=== PATIENT | female | born 1950 | race American Indian/Alaskan Native ===

== ENCOUNTER 2018-05-13 12:09 | Inpatient (IN) | payer MEDICARE ==
--- NOTE | 2018-05-13 17:27 | History and Physical Report ---
History of Present Illness Date of examination: 05/13/18 Date of admission: 05/13/18 13:53 Chief complaint: Uncontrolled BP-sent from Dr Orozco's office as direct admit History of present illness: 67 y/o AAF with pmh of HTN ,RA and diet controlled Diabetes sent from Nephrolgy -Dr Orozco's office for control of BP.Apparently BP in high 190's systolic and Diastolic in 100 to 120 mm HG .No symptoms.Patient apparently compliant.Patient on clonidine once a day.Compliant with her medications.RA in remission.No H/A . Past History Past Medical History: arthritis (RA), diabetes, hypertension Past Surgical History: No surgical history Social history: lives with family, full code Family history: hypertension Medications and Allergies Allergies Allergy/AdvReac Type Severity Reaction Status Date / Time No Known Allergies Allergy Unverified 05/13/18 12:45 Home Medications Medication Instructions Recorded Confirmed Last Taken Type Clonidine HCl 0.1 mg PO HS 05/13/18 05/13/18 Unknown History Hydroxychloroquine 200 mg PO QDAY 05/13/18 05/13/18 Unknown History Losartan Potassium 100 mg PO QDAY 05/13/18 05/13/18 Unknown History Nifedipine ER 90 mg PO QDAY 05/13/18 05/13/18 Unknown History Spironolactone 50 mg PO QDAY 05/13/18 05/13/18 Unknown History Terazosin HCl 1 mg PO QDAY 05/13/18 05/13/18 Unknown History sulfaSALAzine 500 mg PO BID 05/13/18 05/13/18 Unknown History Review of Systems All systems: negative Exam - Constitutional Vitals: Temp Pulse Resp BP Pulse Ox 97.8 F 45 L 18 200/88 99 05/13/18 14:56 05/13/18 14:56 05/13/18 16:50 05/13/18 16:50 05/13/18 14:56 General appearance: Present: no acute distress, well-nourished - EENT Eyes: Present: PERRL ENT: hearing intact, clear oral mucosa - Neck Neck: Present: supple, normal ROM - Respiratory Respiratory effort: normal Respiratory: bilateral: CTA - Cardiovascular Heart rate: 78 Rhythm: regular Heart Sounds: Present: S1 & S2. Absent: rub, click - Extremities Extremities: no ischemia, pulses intact, pulses symmetrical, No edema Peripheral Pulses: within normal limits - Abdominal General gastrointestinal: Present: soft, non-tender, non-distended, normal bowel sounds Female genitourinary: Present: normal - Rectal Rectal Exam: deferred - Integumentary Integumentary: Present: clear, warm, dry - Musculoskeletal Musculoskeletal: gait normal, strength equal bilaterally - Psychiatric Psychiatric: appropriate mood/affect, intact judgment & insight - Neurologic Neurologic: CNII-XII intact, moves all extremities - Allied Health Allied health notes reviewed: nursing, case management Results - Labs CBC & Chem 7: 05/13/18 17:37 05/13/18 17:37 Labs: Laboratory Last Values POC Glucose 114 (70-105) H 05/13/18 16:23 Assessment and Plan Advance Directives: Yes (Full code) VTE prophylaxis?: Chemical Plan of care discussed with patient/family: Yes - Patient Problems (1) Hypertensive emergency Current Visit: Yes Status: Acute Plan to address problem: Clonidine increased to q8hrs from once a day.Inadequate clonidine dosing maybe causing rebound HTNLosartan added.Hydralazine 10 mg IV q3 hrs. 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
[2018-05-13] MEDS ORDERED: TYLENOL PO PRN (17:30)
[2018-05-13] MEDS ORDERED: ZOFRAN IV PRN (17:30)
[2018-05-13] MEDS ORDERED: CLONIDINE HCL 0.1 MG PO SCH (17:30)
[2018-05-13] MEDS ORDERED: NON-FORMULARY (Nifedipine Er 90 MG) PO SCH (17:30)
[2018-05-13] MEDS ORDERED: REGLAN IV PRN (17:30)
[2018-05-13] MEDS ORDERED: PERCOCET 5/325 PO PRN (17:30)
[2018-05-13] MEDS ORDERED: SODIUM CHLORIDE FLUSH SYRINGE 10 ML IV PRN (17:30)
[2018-05-13] MEDS ORDERED: NON-FORMULARY (Hydroxychloroquine 200 MG) PO SCH (17:30)
[2018-05-13] MEDS ORDERED: DILAUDID IV PRN (17:30)
[2018-05-13] MEDS ORDERED: NON-FORMULARY (Losartan Potassium 100 MG) PO SCH (17:30)
[2018-05-13] MEDS: APRESOLINE IV PRN ×2 (17:50→22:04)
[2018-05-13] MEDS ORDERED: COZAAR PO SCH ×2 (18:00→22:24)
[2018-05-13] MEDS ORDERED: NACL 0.45% 1000 ML 1,000 ML IV SCH (18:00)
[2018-05-13] MEDS ORDERED: PROCARDIA XL PO SCH (18:00)
[2018-05-13 18:45] LABS: Basophils % (Auto) 1.3 % (0.0-1.8); Eosinophils # (Auto) 0.1 K/mm3 (0.0-0.4); Eosinophils % (Auto) 1.7 % (0.0-4.3); Hematocrit 38.8 % (30.3-42.9); Hemoglobin 12.8 gm/dl (10.1-14.3); Lymphocytes # (Auto) 1.3 K/mm3 (1.2-5.4); Lymphocytes % (Auto) 44.9 % (13.4-35.0); Mean Corpuscular HGB Conc 33 % (30-34); Mean Corpuscular Volume 92 fl (79-97); Monocytes # (Auto) 0.4 K/mm3 (0.0-0.8); Monocytes % (Auto) 12.6 % (0.0-7.3); Platelet Count 256 K/mm3 (140-440); Red Blood Count 4.24 M/mm3 (3.65-5.03); Red Cell Distribution Width 13.4 % (13.2-15.2)
[2018-05-13 18:53] LABS: Alanine Aminotransferase 28 units/L (7-56); Albumin 3.8 g/dL (3.9-5); BUN/Creatinine Ratio 19; Blood Urea Nitrogen 21 mg/dL (7-17); Calcium 9.7 mg/dL (8.4-10.2); Hemolysis Index 39
[2018-05-13] MEDS: CATAPRES PO SCH ×2 (19:05→22:02)
[2018-05-13] MEDS: PLAQUENIL PO SCH (19:06)
[2018-05-13] MEDS: PEPCID PO SCH (22:04)
[2018-05-13] MEDS: SODIUM CHLORIDE FLUSH SYRINGE 10 ML IV SCH (22:05)
[2018-05-13] MEDS ORDERED: LASIX IV ONE (22:21)
--- NOTE | 2018-05-13 22:25 | Event Note ---
Admitted for uncontrolled HTN failed out pt treatment with five meds Sent from office , d/w Dr ruggiero Adjust meds will follow very poor dietary compliance
[2018-05-14] MEDS: ALDACTONE PO SCH ×2 (03:22→11:28)
[2018-05-14] MEDS ORDERED: LASIX IV ONE (04:00)
[2018-05-14 06:29] LABS: Basophils % (Auto) 1.4 % (0.0-1.8); Eosinophils # (Auto) 0.1 K/mm3 (0.0-0.4); Eosinophils % (Auto) 2.3 % (0.0-4.3); Hematocrit 36.6 % (30.3-42.9); Hemoglobin 12.3 gm/dl (10.1-14.3); Lymphocytes # (Auto) 1.1 K/mm3 (1.2-5.4); Lymphocytes % (Auto) 43.4 % (13.4-35.0); Mean Corpuscular HGB Conc 34 % (30-34); Mean Corpuscular Volume 92 fl (79-97); Monocytes # (Auto) 0.3 K/mm3 (0.0-0.8); Monocytes % (Auto) 14.2 % (0.0-7.3); Platelet Count 252 K/mm3 (140-440); Red Blood Count 3.96 M/mm3 (3.65-5.03); Red Cell Distribution Width 13.8 % (13.2-15.2)
[2018-05-14] MEDS: CATAPRES PO SCH ×4 (06:39→22:00)
[2018-05-14 06:51] LABS: BUN/Creatinine Ratio 19; Blood Urea Nitrogen 19 mg/dL (7-17); Calcium 9.7 mg/dL (8.4-10.2); Hemolysis Index 11
[2018-05-14] MEDS: APRESOLINE IV PRN (07:46)
[2018-05-14] MEDS ORDERED: PROCARDIA XL PO SCH (10:00)
--- NOTE | 2018-05-14 10:27 | Consultation ---
History of Present Illness - Reason for Consult Consult date: 05/14/18 accelerated hypertension Requesting physician: TOR BURNHAM - History of Present Illness 67 y/o AAF with pmh of HTN ,RA and diet controlled Diabetes sent from Nephrolgy -Dr Orozco's office for control of BP.Apparently BP in high 190's systolic and Diastolic in 100 to 120 mm HG .No symptoms.Patient apparently compliant.Patient on clonidine once a day.Compliant with her medications.RA in remission.No H/A . Past History Past Medical History: arthritis (RA), diabetes, hypertension Past Surgical History: No surgical history Social history: lives with family, full code Family history: hypertension Review of Systems All systems: negative Past History Past Medical History: arthritis (RA), diabetes, hypertension Past Surgical History: No surgical history Social history: lives with family, full code Family history: hypertension Medications and Allergies Allergies Allergy/AdvReac Type Severity Reaction Status Date / Time No Known Allergies Allergy Unverified 05/13/18 12:45 Home Medications Medication Instructions Recorded Confirmed Last Taken Type Clonidine HCl 0.1 mg PO HS 05/13/18 05/13/18 Unknown History Hydroxychloroquine 200 mg PO QDAY 05/13/18 05/13/18 Unknown History Losartan Potassium 100 mg PO QDAY 05/13/18 05/13/18 Unknown History Nifedipine ER 90 mg PO QDAY 05/13/18 05/13/18 Unknown History Spironolactone 50 mg PO QDAY 05/13/18 05/13/18 Unknown History Terazosin HCl 1 mg PO QDAY 05/13/18 05/13/18 Unknown History sulfaSALAzine 500 mg PO BID 05/13/18 05/13/18 Unknown History Active Meds: Active Medications Acetaminophen (Tylenol) 650 mg PO Q4H PRN PRN Reason: Pain MILD(1-3)/Fever >100.5/[facility]LL Chlorthalidone (Thalitone) 25 mg PO QDAY [facility] Clonidine HCl (Catapres) 0.1 mg PO Q8HR [facility] Last Admin: 05/14/18 06:39 Dose: Not Given Documented by: Enoxaparin Sodium (Lovenox) 40 mg SUB-Q QDAY@2200 [facility] Famotidine (Pepcid) 20 mg PO BID [facility] Last Admin: 05/13/18 22:04 Dose: 20 mg Documented by: Hydralazine HCl (Apresoline) 20 mg IV Q3H PRN PRN Reason: Blood Pressure Last Admin: 05/14/18 07:46 Dose: 20 mg Documented by: Hydralazine HCl (Apresoline) 100 mg PO TID [facility] Hydromorphone HCl (Dilaudid) 0.5 mg IV Q3H PRN PRN Reason: Pain , Severe (7-10) Hydroxychloroquine Sulfate (Plaquenil) 200 mg PO QDAY [facility] Last Admin: 05/13/18 19:06 Dose: 200 mg Documented by: Losartan Potassium (Cozaar) 50 mg PO QDAY [facility] Losartan Potassium (Cozaar) 100 mg PO QDAY [facility] Metoclopramide HCl (Reglan) 10 mg IV Q6H PRN PRN Reason: Nausea And Vomiting Nifedipine (Procardia Xl) 60 mg PO Q12HR [facility] Ondansetron HCl (Zofran) 4 mg IV Q8H PRN PRN Reason: Nausea And Vomiting Oxycodone/Acetaminophen (Percocet 5/325) 1 tab PO Q6H PRN PRN Reason: Pain, Moderate (4-6) Sodium Chloride (Sodium Chloride Flush Syringe 10 Ml) 10 ml IV PRN PRN PRN Reason: LINE FLUSH Sodium Chloride (Sodium Chloride Flush Syringe 10 Ml) 10 ml IV BID [facility] Last Admin: 05/13/18 22:05 Dose: 10 ml Documented by: Spironolactone (Aldactone) 25 mg PO QDAY [facility] Last Admin: 05/14/18 03:22 Dose: 25 mg Documented by: Exam - Vital Signs Vital signs: Vital Signs Temp Pulse Resp BP Pulse Ox 97.8 F 45 L 20 203/81 99 05/13/18 14:56 05/13/18 14:56 05/13/18 14:56 05/13/18 14:56 05/13/18 14:56 - Physical Exam Narrative exam: General appearance: Present: no acute distress, well-nourished - EENT Eyes: Present: PERRL ENT: hearing intact, clear oral mucosa - Neck Neck: Present: supple, normal ROM - Respiratory Respiratory effort: normal Respiratory: bilateral: CTA - Cardiovascular Heart rate: 78 Rhythm: regular Heart Sounds: Present: S1 & S2. Absent: rub, click - Extremities Extremities: no ischemia, pulses intact, pulses symmetrical, No edema Peripheral Pulses: within normal limits - Abdominal General gastrointestinal: Present: soft, non-tender, non-distended, normal bowel sounds Female genitourinary: Present: normal - Rectal Rectal Exam: deferred - Integumentary Integumentary: Present: clear, warm, dry - Musculoskeletal Musculoskeletal: gait normal, strength equal bilaterally - Psychiatric Psychiatric: appropriate mood/affect, intact judgment & insight - Neurologic Neurologic: CNII-XII intact, moves all extremities - Allied Health Allied health notes reviewed: nursing, case management Results - Lab Results 05/14/18 05:09 05/14/18 05:09 Most recent lab results Calcium 9.7 mg/dL (8.4-10.2) 05/14/18 05:09 Assessment and Plan Impression: * Uncontrolled hypertension * bradycardia * Rheumatoid Arthritis * Type 2 DM Plan: * reduce clonidine and consult cards for bradycardia * amend bp meds for further control * follow up ann and renin levels * strict i/os, low sodium diet * follow up daily lytes
[2018-05-14] MEDS: PLAQUENIL PO SCH (11:27)
[2018-05-14] MEDS: THALITONE PO SCH (11:27)
[2018-05-14] MEDS: PEPCID PO SCH ×2 (11:28→22:21)
[2018-05-14] MEDS: SODIUM CHLORIDE FLUSH SYRINGE 10 ML IV SCH ×2 (11:29→22:21)
[2018-05-14] MEDS: COZAAR PO SCH (11:33)
[2018-05-14] MEDS: PROCARDIA XL PO SCH ×2 (11:34→22:20)
--- NOTE | 2018-05-14 11:47 | Consultation ---
History of Present Illness Consult date: 05/14/18 Requesting physician: VIKTOR CHRISTIE Consult reason: bradycardia History of present illness: The pt is a 67 y/o female with a past medical history of HTN, DM, RA, CKD. She is previously unknown to our practice. She presented as direct admission from Dr. Orozco's office for management of uncontrolled HTN. She was noted to have bradycardia on telemetry and thus cardiology has been consulted. Pt denies any cardiac complaints. She denies any prior cardiac history, including AMI, CAD or HF. She states that she has only been taking clonidine at home for HTN. Past History Past Medical History: arthritis (RA), diabetes, hypertension Past Surgical History: No surgical history Social history: lives with family, full code Family history: hypertension Medications and Allergies Allergies Allergy/AdvReac Type Severity Reaction Status Date / Time No Known Allergies Allergy Unverified 05/13/18 12:45 Home Medications Medication Instructions Recorded Confirmed Last Taken Type Clonidine HCl 0.1 mg PO HS 05/13/18 05/13/18 Unknown History Hydroxychloroquine 200 mg PO QDAY 05/13/18 05/13/18 Unknown History Losartan Potassium 100 mg PO QDAY 05/13/18 05/13/18 Unknown History Nifedipine ER 90 mg PO QDAY 05/13/18 05/13/18 Unknown History Spironolactone 50 mg PO QDAY 05/13/18 05/13/18 Unknown History Terazosin HCl 1 mg PO QDAY 05/13/18 05/13/18 Unknown History sulfaSALAzine 500 mg PO BID 05/13/18 05/13/18 Unknown History Active Meds: Active Medications Acetaminophen (Tylenol) 650 mg PO Q4H PRN PRN Reason: Pain MILD(1-3)/Fever >100.5/[facility]LL Chlorthalidone (Thalitone) 25 mg PO QDAY [facility] Last Admin: 05/14/18 11:27 Dose: 25 mg Documented by: Clonidine HCl (Catapres) 0.1 mg PO Q8HR [facility] Last Admin: 05/14/18 06:39 Dose: Not Given Documented by: Enoxaparin Sodium (Lovenox) 40 mg SUB-Q QDAY@2200 [facility] Famotidine (Pepcid) 20 mg PO BID [facility] Last Admin: 05/14/18 11:28 Dose: 20 mg Documented by: Hydralazine HCl (Apresoline) 20 mg IV Q3H PRN PRN Reason: Blood Pressure Last Admin: 05/14/18 07:46 Dose: 20 mg Documented by: Hydralazine HCl (Apresoline) 100 mg PO TID [facility] Hydromorphone HCl (Dilaudid) 0.5 mg IV Q3H PRN PRN Reason: Pain , Severe (7-10) Hydroxychloroquine Sulfate (Plaquenil) 200 mg PO QDAY [facility] Last Admin: 05/14/18 11:27 Dose: 200 mg Documented by: Losartan Potassium (Cozaar) 100 mg PO QDAY [facility] Last Admin: 05/14/18 11:33 Dose: 100 mg Documented by: Metoclopramide HCl (Reglan) 10 mg IV Q6H PRN PRN Reason: Nausea And Vomiting Nifedipine (Procardia Xl) 60 mg PO Q12HR [facility] Last Admin: 05/14/18 11:34 Dose: 60 mg Documented by: Ondansetron HCl (Zofran) 4 mg IV Q8H PRN PRN Reason: Nausea And Vomiting Oxycodone/Acetaminophen (Percocet 5/325) 1 tab PO Q6H PRN PRN Reason: Pain, Moderate (4-6) Sodium Chloride (Sodium Chloride Flush Syringe 10 Ml) 10 ml IV PRN PRN PRN Reason: LINE FLUSH Sodium Chloride (Sodium Chloride Flush Syringe 10 Ml) 10 ml IV BID [facility] Last Admin: 05/14/18 11:29 Dose: 10 ml Documented by: Spironolactone (Aldactone) 25 mg PO QDAY [facility] Last Admin: 05/14/18 11:28 Dose: 25 mg Documented by: Review of Systems Constitutional: no weight loss, no weight gain, no fever, no chills, no sweats Ears, nose, mouth and throat: no ear pain, no nose pain, no sinus pressure, no sinus pain Cardiovascular: high blood pressure, no chest pain, no orthopnea, no palpitations, no rapid/irregular heart beat, no edema, no syncope, no lightheadedness, no shortness of breath, no dyspnea on exertion, no leg edema, no decreased exercise tolerance Respiratory: no cough, no shortness of breath, no dyspnea on exertion, no congestion, no wheezing, no pain on inspiration Gastrointestinal: no abdominal pain, no nausea, no vomiting, no diarrhea, no constipation, no change in bowel habits Genitourinary Female: no pelvic pain, no flank pain, no dysuria, no urinary frequency, no urgency Musculoskeletal: no neck stiffness, no neck pain, no shooting arm pain, no arm numbness/tingling, no low back pain, no shooting leg pain Integumentary: no rash, no pruritis, no redness, no sores, no wounds Neurological: no head injury, no paralysis, no weakness, no parathesias, no n umbness, no tingling, no seizures, no syncope Psychiatric: no anxiety Endocrine: no cold intolerance, no heat intolerance Hematologic/Lymphatic: no easy bruising, no easy bleeding Allergic/Immunologic: no urticaria, no wheezing Physical Examination Vital Signs Temp Pulse Resp BP Pulse Ox 97.8 F 45 L 20 203/81 99 05/13/18 14:56 05/13/18 14:56 05/13/18 14:56 05/13/18 14:56 05/13/18 14:56 General appearance: no acute distress HEENT: Positive: PERRL, Normocephaly, Mucus Membranes Moist Neck: Positive: neck supple, trachea midline Cardiac: Positive: Regular Rhythm, S1/S2 Lungs: Positive: clear to auscultation Neuro: Positive: Grossly Intact Abdomen: Positive: Soft. Negative: Tender Skin: Negative: Rash, Wound Musculoskeletal: No Pain Extremities: Absent: edema Results 05/14/18 05:09 05/14/18 05:09 Cardiac Enzymes 05/13/18 Range/Units 17:37 AST 36 (5-40) units/L CBC 05/13/18 05/14/18 Range/Units 17:37 05:09 WBC 2.9 L 2.4 L (4.5-11.0) K/mm3 RBC 4.24 3.96 (3.65-5.03) M/mm3 Hgb 12.8 12.3 (10.1-14.3) gm/dl Hct 38.8 36.6 (30.3-42.9) % Plt Count 256 252 (140-440) K/mm3 Lymph # 1.3 1.1 L (1.2-5.4) K/mm3 [place] # 0.4 0.3 (0.0-0.8) K/mm3 Eos # 0.1 0.1 (0.0-0.4) K/mm3 Baso # 0.0 0.0 (0.0-0.1) K/mm3 Comprehensive Metabolic Panel 05/13/18 05/14/18 Range/Units 17:37 05:09 Sodium 138 140 (137-145) mmol/L Potassium 4.0 3.8 (3.6-5.0) mmol/L Chloride 100.9 101.4 (98-107) mmol/L Carbon Dioxide 26 25 (22-30) mmol/L BUN 21 H 19 H (7-17) mg/dL Creatinine 1.1 1.0 (0.7-1.2) mg/dL Glucose 88 113 H (65-100) mg/dL Calcium 9.7 9.7 (8.4-10.2) mg/dL AST 36 (5-40) units/L ALT 28 (7-56) units/L Alkaline Phosphatase 75 (35-129) units/L Total Protein 7.4 (6.3-8.2) g/dL Albumin 3.8 L (3.9-5) g/dL - Imaging and Cardiology Echo: pending EKG: pending EKG interpretations - Telemetry EKG Rhythm: Sinus Bradycardia Assessment and Plan Tele reviewed - pt in SR/SB with HR low of 45bpm overnight, currently in 60s during waking hours. Pt asymptomatic. Obtain ekg and echo. Check thyroid profile. Avoid AV priscilla blocking agents - consider weaning clonidine if possibl e. The patient has been seen in conjunction with Dr. Martín Sanchez who agrees with the assessment and plan of care. 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
--- NOTE | 2018-05-14 14:12 | Progress Note ---
Assessment and Plan Assessment and plan: Uncontrolled hypertension - Patient is on multiple blood pressure medications - Avoid AV priscilla blockers because of bradycardia - Patient said clonidine makes her bradycardic, once BP better controlled will DC clonidine - Patient came from nephrology clinic and nephrology consulted Bradycardia - Avoid AV node blockers - Cardiology consulted and will do echo and stress test Rheumatoid arthritis - Continue on medication DVT prophylaxis - Lovenox Disposition - Continue inpatient care History Interval history: Patient was seen and evaluated this morning, patient's blood pressure is uncontrolled, she had episodes of bradycardia. Hospitalist Physical - Physical exam Narrative exam: Not in cardiopulmonary distress. The patient is obese. Vital signs as documented. Head exam is unremarkable. No scleral icterus . Neck is without jugular venous distension, thyromegaly, or carotid bruits. Lungs are clear to auscultation. Cardiac exam reveals regular rate and Rhythm. Abdominal exam reveals normal bowel sounds. Extremities are nonedematous and both femoral and pedal pulses are normal. FITNESS AND WELLNESS COORDINATOR: Alert and oriented 3. No focal weakness. - Constitutional Vitals: Temp Pulse Resp BP Pulse Ox 99.1 F 55 L 20 187/86 96 05/14/18 12:14 05/14/18 12:14 05/14/18 12:14 05/14/18 12:14 05/14/18 12:14 General appearance: Present: no acute distress Results - Labs CBC & Chem 7: 05/14/18 05:09 05/14/18 05:09 Labs: Laboratory Last Values WBC 2.4 K/mm3 (4.5-11.0) L 05/14/18 05:09 RBC 3.96 M/mm3 (3.65-5.03) 05/14/18 05:09 Hgb 12.3 gm/dl (10.1-14.3) 05/14/18 05:09 Hct 36.6 % (30.3-42.9) 05/14/18 05:09 MCV 92 fl (79-97) 05/14/18 05:09 MCH 31 pg (28-32) 05/14/18 05:09 MCHC 34 % (30-34) 05/14/18 05:09 RDW 13.8 % (13.2-15.2) 05/14/18 05:09 Plt Count 252 K/mm3 (140-440) 05/14/18 05:09 Lymph % (Auto) 43.4 % (13.4-35.0) H 05/14/18 05:09 [place] % (Auto) 14.2 % (0.0-7.3) H 05/14/18 05:09 Eos % (Auto) 2.3 % (0.0-4.3) 05/14/18 05:09 Baso % (Auto) 1.4 % (0.0-1.8) 05/14/18 05:09 Lymph # 1.1 K/mm3 (1.2-5.4) L 05/14/18 05:09 [place] # 0.3 K/mm3 (0.0-0.8) 05/14/18 05:09 Eos # 0.1 K/mm3 (0.0-0.4) 05/14/18 05:09 Baso # 0.0 K/mm3 (0.0-0.1) 05/14/18 05:09 Seg Neutrophils % 38.7 % (40.0-70.0) L 05/14/18 05:09 Seg Neutrophils # 0.9 K/mm3 (1.8-7.7) L 05/14/18 05:09 Sodium 140 mmol/L (137-145) 05/14/18 05:09 Potassium 3.8 mmol/L (3.6-5.0) 05/14/18 05:09 Chloride 101.4 mmol/L (98-107) 05/14/18 05:09 Carbon Dioxide 25 mmol/L (22-30) 05/14/18 05:09 Anion Gap 17 mmol/L 05/14/18 05:09 BUN 19 mg/dL (7-17) H 05/14/18 05:09 Creatinine 1.0 mg/dL (0.7-1.2) 05/14/18 05:09 Estimated GFR > 60 ml/min 05/14/18 05:09 BUN/Creatinine Ratio 19 % 05/14/18 05:09 Glucose 113 mg/dL (65-100) H 05/14/18 05:09 POC Glucose 99 (70-105) 05/14/18 12:15 Hemoglobin A1c 5.7 % (4-6) 05/13/18 17:37 Calcium 9.7 mg/dL (8.4-10.2) 05/14/18 05:09 Total Bilirubin 0.20 mg/dL (0.1-1.2) 05/13/18 17:37 AST 36 units/L (5-40) 05/13/18 17:37 ALT 28 units/L (7-56) 05/13/18 17:37 Alkaline Phosphatase 75 units/L (35-129) 05/13/18 17:37 Total Protein 7.4 g/dL (6.3-8.2) 05/13/18 17:37 Albumin 3.8 g/dL (3.9-5) L 05/13/18 17:37 Albumin/Globulin Ratio 1.1 % 05/13/18 17:37 TSH 2.620 mlU/mL (0.270-4.200) 05/14/18 13:08 Free T4 1.39 ng/dL (0.76-1.46) 05/14/18 13:08
[2018-05-14] MEDS: APRESOLINE PO SCH ×2 (16:08→22:21)
[2018-05-14] MEDS: LOVENOX SUB-Q SCH (22:21)
[2018-05-15 05:27] LABS: Calcium 9.2 mg/dL (8.4-10.2)
[2018-05-15] MEDS: CATAPRES PO SCH ×4 (05:41→22:41)
[2018-05-15] MEDS: APRESOLINE IV PRN (06:25)
[2018-05-15] MEDS: PLAQUENIL PO SCH (08:59)
[2018-05-15] MEDS: ALDACTONE PO SCH (09:01)
[2018-05-15] MEDS: PEPCID PO SCH ×2 (09:01→22:43)
[2018-05-15] MEDS: APRESOLINE PO SCH ×3 (09:02→20:12)
[2018-05-15] MEDS: SODIUM CHLORIDE FLUSH SYRINGE 10 ML IV SCH ×2 (09:02→22:44)
--- NOTE | 2018-05-15 09:41 | Progress Note ---
Assessment and Plan Assessment and plan: Uncontrolled hypertension - Patient is on multiple blood pressure medications, increase dose of nifedipine and spironolactone - Avoid AV priscilla blockers because of bradycardia - Patient said clonidine makes her bradycardic, once BP better controlled will DC clonidine - Patient came from nephrology clinic and nephrology consulted Bradycardia - Avoid AV node blockers - Cardiology consulted and will do echo and stress test - Thyroid profile was with in normal limit Rheumatoid arthritis - Continue home medication DVT prophylaxis - Lovenox Disposition - Continue inpatient care, will follow nephrology recommendations for BP control. History Interval history: Patient was seen and evaluated this morning, patient's blood pressure is uncontrolled, patient said clonidine cause bradycardia. Hospitalist Physical - Physical exam Narrative exam: Not in cardiopulmonary distress. The patient is obese. Vital signs as documented. Head exam is unremarkable. No scleral icterus . Neck is without jugular venous distension, thyromegaly, or carotid bruits. Lungs are clear to auscultation. Cardiac exam reveals regular rate and Rhythm. Abdominal exam reveals normal bowel sounds. Extremities are nonedematous and both femoral and pedal pulses are normal. CARBON ROD INSERTER: Alert and oriented 3. No focal weakness. - Constitutional Vitals: Temp Pulse Resp BP Pulse Ox 97.8 F 82 20 158/68 95 05/15/18 06:05 05/15/18 09:01 05/15/18 06:05 05/15/18 09:01 05/15/18 06:05 General appearance: Present: no acute distress Results - Labs CBC & Chem 7: 05/14/18 05:09 05/15/18 04:46 Labs: Laboratory Last Values WBC 2.4 K/mm3 (4.5-11.0) L 05/14/18 05:09 RBC 3.96 M/mm3 (3.65-5.03) 05/14/18 05:09 Hgb 12.3 gm/dl (10.1-14.3) 05/14/18 05:09 Hct 36.6 % (30.3-42.9) 05/14/18 05:09 MCV 92 fl (79-97) 05/14/18 05:09 MCH 31 pg (28-32) 05/14/18 05:09 MCHC 34 % (30-34) 05/14/18 05:09 RDW 13.8 % (13.2-15.2) 05/14/18 05:09 Plt Count 252 K/mm3 (140-440) 05/14/18 05:09 Lymph % (Auto) 43.4 % (13.4-35.0) H 05/14/18 05:09 [place] % (Auto) 14.2 % (0.0-7.3) H 05/14/18 05:09 Eos % (Auto) 2.3 % (0.0-4.3) 05/14/18 05:09 Baso % (Auto) 1.4 % (0.0-1.8) 05/14/18 05:09 Lymph # 1.1 K/mm3 (1.2-5.4) L 05/14/18 05:09 [place] # 0.3 K/mm3 (0.0-0.8) 05/14/18 05:09 Eos # 0.1 K/mm3 (0.0-0.4) 05/14/18 05:09 Baso # 0.0 K/mm3 (0.0-0.1) 05/14/18 05:09 Seg Neutrophils % 38.7 % (40.0-70.0) L 05/14/18 05:09 Seg Neutrophils # 0.9 K/mm3 (1.8-7.7) L 05/14/18 05:09 Sodium 134 mmol/L (137-145) L 05/15/18 04:46 Potassium 3.7 mmol/L (3.6-5.0) 05/15/18 04:46 Chloride 98.0 mmol/L (98-107) 05/15/18 04:46 Carbon Dioxide 24 mmol/L (22-30) 05/15/18 04:46 Anion Gap 16 mmol/L 05/15/18 04:46 BUN 23 mg/dL (7-17) H 05/15/18 04:46 Creatinine 1.4 mg/dL (0.7-1.2) H 05/15/18 04:46 Estimated GFR 46 ml/min 05/15/18 04:46 BUN/Creatinine Ratio 16 % 05/15/18 04:46 Glucose 90 mg/dL (65-100) 05/15/18 04:46 POC Glucose 100 (70-105) 05/15/18 07:58 Hemoglobin A1c 5.7 % (4-6) 05/13/18 17:37 Calcium 9.2 mg/dL (8.4-10.2) 05/15/18 04:46 Total Bilirubin 0.20 mg/dL (0.1-1.2) 05/13/18 17:37 AST 36 units/L (5-40) 05/13/18 17:37 ALT 28 units/L (7-56) 05/13/18 17:37 Alkaline Phosphatase 75 units/L (35-129) 05/13/18 17:37 Total Protein 7.4 g/dL (6.3-8.2) 05/13/18 17:37 Albumin 3.8 g/dL (3.9-5) L 05/13/18 17:37 Albumin/Globulin Ratio 1.1 % 05/13/18 17:37 TSH 2.620 mlU/mL (0.270-4.200) 05/14/18 13:08 Free T4 1.39 ng/dL (0.76-1.46) 05/14/18 13:08
[2018-05-15] MEDS ORDERED: TERAZOSIN HCL 1 MG PO SCH (10:00)
--- NOTE | 2018-05-15 10:23 | Progress Note ---
Assessment and Plan Impression: * Uncontrolled hypertension * bradycardia * Rheumatoid Arthritis * Type 2 DM Plan: * reduce clonidine * amend bp meds for further control * follow up ann and renin levels * strict i/os, low sodium diet * follow up daily lytes * ok to dc home once bp controlled Subjective Date of service: 05/15/18 Principal diagnosis: acc hypertension Interval history: resting in bed today Objective - Exam Narrative Exam: General appearance: Present: no acute distress, well-nourished - EENT Eyes: Present: PERRL ENT: hearing intact, clear oral mucosa - Neck Neck: Present: supple, normal ROM - Respiratory Respiratory effort: normal Respiratory: bilateral: CTA - Cardiovascular Heart rate: 78 Rhythm: regular Heart Sounds: Present: S1 & S2. Absent: rub, click - Extremities Extremities: no ischemia, pulses intact, pulses symmetrical, No edema Peripheral Pulses: within normal limits - Abdominal General gastrointestinal: Present: soft, non-tender, non-distended, normal bowel sounds Female genitourinary: Present: normal - Rectal Rectal Exam: deferred - Integumentary Integumentary: Present: clear, warm, dry - Musculoskeletal Musculoskeletal: gait normal, strength equal bilaterally - Psychiatric Psychiatric: appropriate mood/affect, intact judgment & insight - Neurologic Neurologic: CNII-XII intact, moves all extremities - Allied Health Allied health notes reviewed: nursing, case management - Vital Signs Vital signs: Vital Signs - 12hr 05/15/18 05/15/18 05/15/18 00:04 06:05 06:25 Temperature 98.0 F 97.8 F Pulse Rate 62 58 L Respiratory 20 20 Rate Blood Pressure 169/72 188/75 188/75 O2 Sat by Pulse 95 95 Oximetry 05/15/18 05/15/18 08:57 09:01 Temperature Pulse Rate 82 Respiratory Rate Blood Pressure 158/68 158/68 O2 Sat by Pulse Oximetry - Lab 05/14/18 05:09 05/15/18 04:46 Most recent lab results Calcium 9.2 mg/dL (8.4-10.2) 05/15/18 04:46 Medications & Allergies - Medications Allergies/Adverse Reactions: Allergies No Known Allergies Allergy (Unverified 05/13/18 12:45) Home Medications: Home Medications Medication Instructions Recorded Confirmed Last Taken Type Clonidine HCl 0.1 mg PO HS 05/13/18 05/13/18 Unknown History Hydroxychloroquine 200 mg PO QDAY 05/13/18 05/13/18 Unknown History Losartan Potassium 100 mg PO QDAY 05/13/18 05/13/18 Unknown History Nifedipine ER 90 mg PO QDAY 05/13/18 05/13/18 Unknown History Spironolactone 50 mg PO QDAY 05/13/18 05/13/18 Unknown History Terazosin HCl 1 mg PO QDAY 05/13/18 05/13/18 Unknown History sulfaSALAzine 500 mg PO BID 05/13/18 05/13/18 Unknown History Active Medications: Generic Name Dose Route Start Last Admin Trade Name Freq PRN Reason Stop Dose Admin Acetaminophen 650 mg 05/13/18 17:30 Tylenol PO Q4H PRN Pain MILD(1-3)/Fever >100.5/HARRELL Chlorthalidone 25 mg 05/14/18 10:00 05/14/18 11:27 Thalitone PO 25 mg QDAY SAVANNAH Administration Clonidine HCl 0.1 mg 05/13/18 18:00 05/15/18 05:41 Catapres PO Not Given Q8HR [facility] Enoxaparin Sodium 40 mg 05/14/18 22:00 05/14/18 22:21 Lovenox SUB-Q 40 mg QDAY@2200 SAVANNAH Administration Famotidine 20 mg 05/13/18 22:00 05/15/18 09:01 Pepcid PO 20 mg BID SAVANNAH Administration Hydralazine HCl 20 mg 05/13/18 22:23 05/15/18 06:25 Apresoline IV 20 mg Q3H PRN Administration Blood Pressure Hydralazine HCl 100 mg 05/14/18 14:00 05/15/18 09:02 Apresoline PO 100 mg TID SAVANNAH Administration Hydromorphone HCl 0.5 mg 05/13/18 17:30 Dilaudid IV Q3H PRN Pain , Severe (7-10) Hydroxychloroquine Sulfate 200 mg 05/13/18 18:00 05/15/18 08:59 Plaquenil PO 200 mg QDAY SAVANNAH Administration Losartan Potassium 100 mg 05/14/18 11:30 05/14/18 11:33 Cozaar PO 100 mg QDAY SAVANNAH Administration Metoclopramide HCl 10 mg 05/13/18 17:30 Reglan IV Q6H PRN Nausea And Vomiting Nifedipine 90 mg 05/15/18 10:00 Procardia Xl PO Q12HR SAVANNAH Ondansetron HCl 4 mg 05/13/18 17:30 Zofran IV Q8H PRN Nausea And Vomiting Oxycodone/Acetaminophen 1 tab 05/13/18 17:30 Percocet 5/325 PO Q6H PRN Pain, Moderate (4-6) Prazosin HCl 1 mg 05/15/18 10:00 Minipress PO DAILY SAVANNAH Sodium Chloride 10 ml 05/13/18 17:30 Sodium Chloride Flush Syringe 10 Ml IV PRN PRN LINE FLUSH Sodium Chloride 10 ml 05/13/18 22:00 05/15/18 09:02 Sodium Chloride Flush Syringe 10 Ml IV 10 ml BID SAVANNAH Administration Spironolactone 50 mg 05/15/18 10:00 05/15/18 09:01 Aldactone PO 50 mg QDAY SAVANNAH Administration
--- NOTE | 2018-05-15 12:35 | Progress Note ---
Assessment and Plan (1) Hypertensive emergency Current Visit: Yes Status: Acute Improving. (2) Sinus bradycardia Current Visit: Yes Status: Acute (3) Rheumatoid arthritis Current Visit: Yes Status: Chronic (4) T2DM (type 2 diabetes mellitus) Current Visit: Yes Status: Chronic Qualifiers: Diabetes mellitus rodent exterminator insulin use: without rodent exterminator use (5) CKD (chronic kidney disease) Current Visit: Yes Status: Chronic Subjective Date of service: 05/15/18 Principal diagnosis: acc hypertension Interval history: Feeling better.No chest pain or palpitations. Objective Vital Signs Temp Pulse Resp BP Pulse Ox 05/15/18 11:41 99.4 F 65 20 157/72 95 05/15/18 09:01 82 158/68 05/15/18 08:57 158/68 05/15/18 06:25 188/75 05/15/18 06:05 97.8 F 58 L 20 188/75 95 05/15/18 00:04 98.0 F 62 20 169/72 95 05/14/18 21:51 99.0 F 64 174/75 95 05/14/18 17:19 98.8 F 71 20 161/71 98 05/14/18 16:10 58 L 187/86 - Physical Examination General: Appears Well HEENT: Positive: PERRL, Normocephaly, Mucus Membranes Moist Neck: Positive: neck supple, trachea midline, Carotid Upstroke (good) Cardiac: Positive: Regular Rate, S4 Lungs: Positive: clear to auscultation Neuro: Positive: Grossly Intact Abdomen: Positive: Soft, Active Bowel Sounds. Negative: Tender Skin: Negative: Rash, Wound Musculoskeletal: No Pain Extremities: Absent: edema - Labs and Meds Comprehensive Metabolic Panel 05/15/18 Range/Units 04:46 Sodium 134 L (137-145) mmol/L Potassium 3.7 (3.6-5.0) mmol/L Chloride 98.0 (98-107) mmol/L Carbon Dioxide 24 (22-30) mmol/L BUN 23 H (7-17) mg/dL Creatinine 1.4 H (0.7-1.2) mg/dL Glucose 90 (65-100) mg/dL Calcium 9.2 (8.4-10.2) mg/dL - Imaging and Cardiology EKG: pending, report reviewed Echo: pending - Telemetry EKG Rhythm: Sinus Rhythm
[2018-05-15] MEDS: THALITONE PO SCH (12:53)
[2018-05-15] MEDS: PROCARDIA XL PO SCH ×2 (12:53→22:43)
[2018-05-15] MEDS: COZAAR PO SCH (15:14)
[2018-05-15] MEDS: MINIPRESS PO SCH (16:55)
[2018-05-15] MEDS ORDERED: NACL 0.9% 500 ML 250 ML IV ONE (18:34)
[2018-05-15] MEDS: LOVENOX SUB-Q SCH (22:43)
[2018-05-16] MEDS: CATAPRES PO SCH (05:42)
[2018-05-16 06:13] LABS: Calcium 9.6 mg/dL (8.4-10.2)
[2018-05-16] MEDS: APRESOLINE PO SCH ×3 (08:00→21:18)
[2018-05-16] MEDS: SODIUM CHLORIDE FLUSH SYRINGE 10 ML IV SCH ×2 (09:21→21:15)
[2018-05-16] MEDS: PROCARDIA XL PO SCH ×2 (09:21→21:18)
[2018-05-16] MEDS: ALDACTONE PO SCH (09:21)
[2018-05-16] MEDS: PEPCID PO SCH ×2 (09:21→21:15)
--- NOTE | 2018-05-16 10:04 | Progress Note ---
Assessment and Plan (1) Hypertensive emergency Current Visit: Yes Status: Acute Improving.172/70 (2) Sinus bradycardia Current Visit: Yes Status: Acute (3) Rheumatoid arthritis Current Visit: Yes Status: Chronic (4) T2DM (type 2 diabetes mellitus) Current Visit: Yes Status: Chronic Qualifiers: Diabetes mellitus skilled nursing insulin use: without skilled nursing use (5) CKD (chronic kidney disease) Current Visit: Yes Status: Chronic Subjective Principal diagnosis: acc hypertension Interval history: No chest pain or palpitations. Objective Vital Signs Temp Pulse Resp BP Pulse Ox 05/16/18 09:21 63 161/70 05/16/18 08:03 54 L 05/16/18 08:02 172/71 05/16/18 05:21 97.6 F 59 L 24 169/70 98 05/15/18 22:41 60 144/60 05/15/18 22:38 98.0 F 75 18 144/64 98 05/15/18 20:18 16 05/15/18 20:06 61 16 137/60 95 05/15/18 18:32 50 L 05/15/18 18:29 103/52 05/15/18 16:57 98.5 F 05/15/18 16:55 63 180/77 05/15/18 16:50 58 L 180/77 96 05/15/18 16:49 60 16 95 05/15/18 15:14 65 167/74 05/15/18 15:13 167/74 05/15/18 11:41 99.4 F 65 20 157/72 95 - Physical Examination General: Appears Well HEENT: Positive: PERRL, Normocephaly, Mucus Membranes Moist Neck: Positive: neck supple, trachea midline, Carotid Upstroke (good) Neuro: Positive: Grossly Intact Abdomen: Positive: Soft, Active Bowel Sounds. Negative: Tender Skin: Negative: Rash, Wound Musculoskeletal: No Pain Extremities: Absent: edema - Labs and Meds Comprehensive Metabolic Panel 05/16/18 Range/Units 05:12 Sodium 133 L (137-145) mmol/L Potassium 4.0 (3.6-5.0) mmol/L Chloride 96.0 L (98-107) mmol/L Carbon Dioxide 23 (22-30) mmol/L BUN 31 H (7-17) mg/dL Creatinine 1.5 H (0.7-1.2) mg/dL Glucose 91 (65-100) mg/dL Calcium 9.6 (8.4-10.2) mg/dL - Imaging and Cardiology EKG: pending, report reviewed Echo: pending
[2018-05-16] MEDS: COZAAR PO SCH (10:31)
[2018-05-16] MEDS: PLAQUENIL PO SCH (10:31)
[2018-05-16] MEDS: MINIPRESS PO SCH (10:35)
--- NOTE | 2018-05-16 10:45 | Progress Note ---
Assessment and Plan Assessment and plan: Uncontrolled hypertension - Patient is on multiple blood pressure medications, increase dose of nifedipine and spironolactone - Avoid AV priscilla blockers because of bradycardia - Patient said clonidine makes her bradycardic, clonidine D/Govind and will monitor BP - Patient came from nephrology clinic and nephrology consulted ELLEN - cr is trending up - follow up with nephrology Bradycardia - Avoid AV node blockers - Cardiology consulted and will do echo and stress test - Thyroid profile was with in normal limit Rheumatoid arthritis - Continue home medication DVT prophylaxis - Lovenox Disposition - Possible discharge home if BP is controlled. Will follow nephrology recommendations for ELLEN. History Interval history: Patient was seen and evaluated this morning, patient's blood pressure is uncontrolled, patient said clonidine cause bradycardia. Hospitalist Physical - Physical exam Narrative exam: Not in cardiopulmonary distress. The patient is obese. Vital signs as documented. Head exam is unremarkable. No scleral icterus . Neck is without jugular venous distension, thyromegaly, or carotid bruits. Lungs are clear to auscultation. Cardiac exam reveals regular rate and Rhythm. Abdominal exam reveals normal bowel sounds. Extremities are nonedematous and both femoral and pedal pulses are normal. 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 No focal weakness. - Constitutional Vitals: Temp Pulse Resp BP Pulse Ox 97.6 F 62 24 170/69 98 05/16/18 05:21 05/16/18 10:31 05/16/18 05:21 05/16/18 10:31 05/16/18 05:21 General appearance: Present: no acute distress Results - Labs CBC & Chem 7: 05/14/18 05:09 05/16/18 05:12 Labs: Laboratory Last Values WBC 2.4 K/mm3 (4.5-11.0) L 05/14/18 05:09 RBC 3.96 M/mm3 (3.65-5.03) 05/14/18 05:09 Hgb 12.3 gm/dl (10.1-14.3) 05/14/18 05:09 Hct 36.6 % (30.3-42.9) 05/14/18 05:09 MCV 92 fl (79-97) 05/14/18 05:09 MCH 31 pg (28-32) 05/14/18 05:09 MCHC 34 % (30-34) 05/14/18 05:09 RDW 13.8 % (13.2-15.2) 05/14/18 05:09 Plt Count 252 K/mm3 (140-440) 05/14/18 05:09 Lymph % (Auto) 43.4 % (13.4-35.0) H 05/14/18 05:09 [place] % (Auto) 14.2 % (0.0-7.3) H 05/14/18 05:09 Eos % (Auto) 2.3 % (0.0-4.3) 05/14/18 05:09 Baso % (Auto) 1.4 % (0.0-1.8) 05/14/18 05:09 Lymph # 1.1 K/mm3 (1.2-5.4) L 05/14/18 05:09 [place] # 0.3 K/mm3 (0.0-0.8) 05/14/18 05:09 Eos # 0.1 K/mm3 (0.0-0.4) 05/14/18 05:09 Baso # 0.0 K/mm3 (0.0-0.1) 05/14/18 05:09 Seg Neutrophils % 38.7 % (40.0-70.0) L 05/14/18 05:09 Seg Neutrophils # 0.9 K/mm3 (1.8-7.7) L 05/14/18 05:09 Sodium 133 mmol/L (137-145) L 05/16/18 05:12 Potassium 4.0 mmol/L (3.6-5.0) 05/16/18 05:12 Chloride 96.0 mmol/L (98-107) L 05/16/18 05:12 Carbon Dioxide 23 mmol/L (22-30) 05/16/18 05:12 Anion Gap 18 mmol/L 05/16/18 05:12 BUN 31 mg/dL (7-17) H 05/16/18 05:12 Creatinine 1.5 mg/dL (0.7-1.2) H 05/16/18 05:12 Estimated GFR 42 ml/min 05/16/18 05:12 BUN/Creatinine Ratio 21 % 05/16/18 05:12 Glucose 91 mg/dL (65-100) 05/16/18 05:12 POC Glucose 88 (70-105) 05/16/18 08:18 Hemoglobin A1c 5.7 % (4-6) 05/13/18 17:37 Calcium 9.6 mg/dL (8.4-10.2) 05/16/18 05:12 Total Bilirubin 0.20 mg/dL (0.1-1.2) 05/13/18 17:37 AST 36 units/L (5-40) 05/13/18 17:37 ALT 28 units/L (7-56) 05/13/18 17:37 Alkaline Phosphatase 75 units/L (35-129) 05/13/18 17:37 Total Protein 7.4 g/dL (6.3-8.2) 05/13/18 17:37 Albumin 3.8 g/dL (3.9-5) L 05/13/18 17:37 Albumin/Globulin Ratio 1.1 % 05/13/18 17:37 TSH 2.620 mlU/mL (0.270-4.200) 05/14/18 13:08 Free T4 1.39 ng/dL (0.76-1.46) 05/14/18 13:08
--- NOTE | 2018-05-16 11:43 | Progress Note ---
Assessment and Plan Impression: * Uncontrolled hypertension * ELLEN * bradycardia * Rheumatoid Arthritis * Type 2 DM Plan: * reduce clonidine * add minoxidil * cr is worse, hold diuresis, add gentle ivfs, keep arb for now * amend bp meds for further control * follow up ann and renin levels * strict i/os, low sodium diet * follow up daily lytes Subjective Date of service: 05/16/18 Principal diagnosis: acc hypertension Interval history: resting in bed today Objective - Exam Narrative Exam: General appearance: Present: no acute distress, well-nourished - EENT Eyes: Present: PERRL ENT: hearing intact, clear oral mucosa - Neck Neck: Present: supple, normal ROM - Respiratory Respiratory effort: normal Respiratory: bilateral: CTA - Cardiovascular Heart rate: 78 Rhythm: regular Heart Sounds: Present: S1 & S2. Absent: rub, click - Extremities Extremities: no ischemia, pulses intact, pulses symmetrical, No edema Peripheral Pulses: within normal limits - Abdominal General gastrointestinal: Present: soft, non-tender, non-distended, normal bowel sounds Female genitourinary: Present: normal - Rectal Rectal Exam: deferred - Integumentary Integumentary: Present: clear, warm, dry - Musculoskeletal Musculoskeletal: gait normal, strength equal bilaterally - Psychiatric Psychiatric: appropriate mood/affect, intact judgment & insight - Neurologic Neurologic: CNII-XII intact, moves all extremities - Allied Health Allied health notes reviewed: nursing, case management - Vital Signs Vital signs: Vital Signs - 12hr 05/16/18 05/16/18 05/16/18 05:21 08:02 08:03 Temperature 97.6 F Pulse Rate 59 L 54 L Respiratory 24 Rate Blood Pressure 169/70 172/71 O2 Sat by Pulse 98 Oximetry 05/16/18 05/16/18 05/16/18 08:50 09:21 10:31 Temperature Pulse Rate 63 62 Respiratory Rate Blood Pressure 161/70 161/70 170/69 O2 Sat by Pulse Oximetry - Lab 05/14/18 05:09 05/16/18 05:12 Most recent lab results Calcium 9.6 mg/dL (8.4-10.2) 05/16/18 05:12 Medications & Allergies - Medications Allergies/Adverse Reactions: Allergies No Known Allergies Allergy (Unverified 05/13/18 12:45) Home Medications: Home Medications Medication Instructions Recorded Confirmed Last Taken Type Clonidine HCl 0.1 mg PO HS 05/13/18 05/13/18 Unknown History Hydroxychloroquine 200 mg PO QDAY 05/13/18 05/13/18 Unknown History Losartan Potassium 100 mg PO QDAY 05/13/18 05/13/18 Unknown History Nifedipine ER 90 mg PO QDAY 05/13/18 05/13/18 Unknown History Spironolactone 50 mg PO QDAY 05/13/18 05/13/18 Unknown History Terazosin HCl 1 mg PO QDAY 05/13/18 05/13/18 Unknown History sulfaSALAzine 500 mg PO BID 05/13/18 05/13/18 Unknown History Active Medications: Generic Name Dose Route Start Last Admin Trade Name Freq PRN Reason Stop Dose Admin Acetaminophen 650 mg 05/13/18 17:30 Tylenol PO Q4H PRN Pain MILD(1-3)/Fever >100.5/HARRELL Enoxaparin Sodium 40 mg 05/14/18 22:00 05/15/18 22:43 Lovenox SUB-Q 40 mg QDAY@2200 SAVANNAH Administration Famotidine 20 mg 05/13/18 22:00 05/16/18 09:21 Pepcid PO 20 mg BID SAVANNAH Administration Hydralazine HCl 20 mg 05/13/18 22:23 05/15/18 06:25 Apresoline IV 20 mg Q3H PRN Administration Blood Pressure Hydralazine HCl 100 mg 05/14/18 14:00 05/16/18 08:00 Apresoline PO 100 mg TID SAVANNAH Administration Hydromorphone HCl 0.5 mg 05/13/18 17:30 Dilaudid IV Q3H PRN Pain , Severe (7-10) Hydroxychloroquine Sulfate 200 mg 05/13/18 18:00 05/16/18 10:31 Plaquenil PO 200 mg QDAY SAVANNAH Administration Sodium Chloride 1,000 mls @ 75 mls/hr 05/16/18 12:00 Nacl 0.45% 1000 Ml IV DIRECT SAVANNAH Losartan Potassium 100 mg 05/14/18 11:30 05/16/18 10:31 Cozaar PO 100 mg QDAY SAVANNAH Administration Metoclopramide HCl 10 mg 05/13/18 17:30 Reglan IV Q6H PRN Nausea And Vomiting Nifedipine 90 mg 05/15/18 10:00 05/16/18 09:21 Procardia Xl PO 90 mg Q12HR SAVANNAH Administration Ondansetron HCl 4 mg 05/13/18 17:30 Zofran IV Q8H PRN Nausea And Vomiting Oxycodone/Acetaminophen 1 tab 05/13/18 17:30 Percocet 5/325 PO Q6H PRN Pain, Moderate (4-6) Prazosin HCl 1 mg 05/15/18 10:00 05/16/18 10:35 Minipress PO 1 mg DAILY SAVANNAH Administration Sodium Chloride 10 ml 05/13/18 17:30 Sodium Chloride Flush Syringe 10 Ml IV PRN PRN LINE FLUSH Sodium Chloride 10 ml 05/13/18 22:00 05/16/18 09:21 Sodium Chloride Flush Syringe 10 Ml IV 10 ml BID SAVANNAH Administration
[2018-05-16] MEDS: LONITEN PO SCH ×2 (12:15→21:14)
[2018-05-16] MEDS: NACL 0.45% 1000 ML 1,000 ML IV SCH (12:16)
[2018-05-16] MEDS: LOVENOX SUB-Q SCH (21:15)
[2018-05-17] MEDS: NACL 0.45% 1000 ML 1,000 ML IV SCH ×2 (03:59→08:45)
[2018-05-17 06:00] LABS: Calcium 9.1 mg/dL (8.4-10.2)
[2018-05-17] MEDS: APRESOLINE PO SCH ×2 (08:53→14:57)
[2018-05-17] MEDS ORDERED: LONITEN PO SCH (09:49)
--- NOTE | 2018-05-17 09:51 | Progress Note ---
Assessment and Plan Impression: * Uncontrolled hypertension * ELLEN * bradycardia * Rheumatoid Arthritis * Type 2 DM Plan: * reduce clonidine * added minoxidil * cr is better today, hold ivfs, restart only one diuretic, she was on 2 * amend bp meds for further control * follow up ann and renin levels * strict i/os, low sodium diet * follow up daily lytes Subjective Date of service: 05/17/18 Principal diagnosis: acc hypertension Interval history: resting in bed today Objective - Exam Narrative Exam: General appearance: Present: no acute distress, well-nourished - EENT Eyes: Present: PERRL ENT: hearing intact, clear oral mucosa - Neck Neck: Present: supple, normal ROM - Respiratory Respiratory effort: normal Respiratory: bilateral: CTA - Cardiovascular Heart rate: 78 Rhythm: regular Heart Sounds: Present: S1 & S2. Absent: rub, click - Extremities Extremities: no ischemia, pulses intact, pulses symmetrical, No edema Peripheral Pulses: within normal limits - Abdominal General gastrointestinal: Present: soft, non-tender, non-distended, normal bowel sounds Female genitourinary: Present: normal - Rectal Rectal Exam: deferred - Integumentary Integumentary: Present: clear, warm, dry - Musculoskeletal Musculoskeletal: gait normal, strength equal bilaterally - Psychiatric Psychiatric: appropriate mood/affect, intact judgment & insight - Neurologic Neurologic: CNII-XII intact, moves all extremities - Allied Health Allied health notes reviewed: nursing, case management - Vital Signs Vital signs: Vital Signs - 12hr 05/17/18 05/17/18 04:14 08:51 Temperature 97.9 F Pulse Rate 64 64 Respiratory 18 20 Rate Blood Pressure 163/68 171/82 O2 Sat by Pulse 98 97 Oximetry - Lab 05/14/18 05:09 05/17/18 05:12 Most recent lab results Calcium 9.1 mg/dL (8.4-10.2) 05/17/18 05:12 Medications & Allergies - Medications Allergies/Adverse Reactions: Allergies No Known Allergies Allergy (Unverified 05/13/18 12:45) Home Medications: Home Medications Medication Instructions Recorded Confirmed Last Taken Type Clonidine HCl 0.1 mg PO HS 05/13/18 05/13/18 Unknown History Hydroxychloroquine 200 mg PO QDAY 05/13/18 05/13/18 Unknown History Losartan Potassium 100 mg PO QDAY 05/13/18 05/13/18 Unknown History Nifedipine ER 90 mg PO QDAY 05/13/18 05/13/18 Unknown History Spironolactone 50 mg PO QDAY 05/13/18 05/13/18 Unknown History Terazosin HCl 1 mg PO QDAY 05/13/18 05/13/18 Unknown History sulfaSALAzine 500 mg PO BID 05/13/18 05/13/18 Unknown History Active Medications: Generic Name Dose Route Start Last Admin Trade Name Freq PRN Reason Stop Dose Admin Acetaminophen 650 mg 05/13/18 17:30 Tylenol PO Q4H PRN Pain MILD(1-3)/Fever >100.5/HARRELL Enoxaparin Sodium 40 mg 05/14/18 22:00 05/16/18 21:15 Lovenox SUB-Q 40 mg QDAY@2200 SAVANNAH Administration Famotidine 20 mg 05/13/18 22:00 05/16/18 21:15 Pepcid PO 20 mg BID SAVANNAH Administration Hydralazine HCl 20 mg 05/13/18 22:23 05/15/18 06:25 Apresoline IV 20 mg Q3H PRN Administration Blood Pressure Hydralazine HCl 100 mg 05/14/18 14:00 05/17/18 08:53 Apresoline PO 100 mg TID SAVANNAH Administration Hydromorphone HCl 0.5 mg 05/13/18 17:30 Dilaudid IV Q3H PRN Pain , Severe (7-10) Hydroxychloroquine Sulfate 200 mg 05/13/18 18:00 05/16/18 10:31 Plaquenil PO 200 mg QDAY SAVANNAH Administration Losartan Potassium 100 mg 05/14/18 11:30 05/16/18 10:31 Cozaar PO 100 mg QDAY SAVANNAH Administration Metoclopramide HCl 10 mg 05/13/18 17:30 Reglan IV Q6H PRN Nausea And Vomiting Minoxidil 5 mg 05/17/18 09:49 Loniten PO BID SAVANNAH Nifedipine 90 mg 05/15/18 10:00 05/16/18 21:18 Procardia Xl PO 90 mg Q12HR SAVANNAH Administration Ondansetron HCl 4 mg 05/13/18 17:30 Zofran IV Q8H PRN Nausea And Vomiting Oxycodone/Acetaminophen 1 tab 05/13/18 17:30 Percocet 5/325 PO Q6H PRN Pain, Moderate (4-6) Prazosin HCl 1 mg 05/15/18 10:00 05/16/18 10:35 Minipress PO 1 mg DAILY SAVANNAH Administration Sodium Chloride 10 ml 05/13/18 17:30 Sodium Chloride Flush Syringe 10 Ml IV PRN PRN LINE FLUSH Sodium Chloride 10 ml 05/13/18 22:00 05/16/18 21:15 Sodium Chloride Flush Syringe 10 Ml IV 10 ml BID SAVANNAH Administration
[2018-05-17] MEDS: PEPCID PO SCH (10:18)
[2018-05-17] MEDS: COZAAR PO SCH (10:18)
[2018-05-17] MEDS: PROCARDIA XL PO SCH (10:22)
[2018-05-17] MEDS: MINIPRESS PO SCH (10:23)
[2018-05-17] MEDS: PLAQUENIL PO SCH (10:23)
[2018-05-17] MEDS: SODIUM CHLORIDE FLUSH SYRINGE 10 ML IV SCH (10:24)
--- NOTE | 2018-05-17 12:00 | Progress Note ---
Assessment and Plan Assessment and plan: Uncontrolled hypertension - Patient is on multiple blood pressure medications, increase dose of nifedipine and spironolactone - Avoid AV priscilla blockers because of bradycardia - Patient said clonidine makes her bradycardic, clonidine D/Govind and will monitor BP - Patient came from nephrology clinic and nephrology consulted ELLEN - cr is trending down - follow up with nephrology Bradycardia - Avoid AV node blockers - Cardiology consulted and will do echo and stress test - Thyroid profile was with in normal limit Rheumatoid arthritis - Continue home medication DVT prophylaxis - Lovenox Disposition - will discharged if BP is 150 or below. History Interval history: Patient was seen and evaluated this morning, patient's blood pressure is uncontrolled, patient's BP jumped up to 200. Hospitalist Physical - Physical exam Narrative exam: Not in cardiopulmonary distress. The patient is obese. Vital signs as documented. Head exam is unremarkable. No scleral icterus . Neck is without jugular venous distension, thyromegaly, or carotid bruits. Lungs are clear to auscultation. Cardiac exam reveals regular rate and Rhythm. Abdominal exam reveals normal bowel sounds. Extremities are nonedematous and both femoral and pedal pulses are normal. 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 No focal weakness. - Constitutional Vitals: Temp Pulse Resp BP Pulse Ox 97.9 F 91 H 20 200/82 98 05/17/18 04:14 05/17/18 10:23 05/17/18 10:13 05/17/18 10:23 05/17/18 10:13 General appearance: Present: no acute distress Results - Labs CBC & Chem 7: 05/14/18 05:09 05/17/18 05:12 Labs: Laboratory Last Values WBC 2.4 K/mm3 (4.5-11.0) L 05/14/18 05:09 RBC 3.96 M/mm3 (3.65-5.03) 05/14/18 05:09 Hgb 12.3 gm/dl (10.1-14.3) 05/14/18 05:09 Hct 36.6 % (30.3-42.9) 05/14/18 05:09 MCV 92 fl (79-97) 05/14/18 05:09 MCH 31 pg (28-32) 05/14/18 05:09 MCHC 34 % (30-34) 05/14/18 05:09 RDW 13.8 % (13.2-15.2) 05/14/18 05:09 Plt Count 252 K/mm3 (140-440) 05/14/18 05:09 Lymph % (Auto) 43.4 % (13.4-35.0) H 05/14/18 05:09 [place] % (Auto) 14.2 % (0.0-7.3) H 05/14/18 05:09 Eos % (Auto) 2.3 % (0.0-4.3) 05/14/18 05:09 Baso % (Auto) 1.4 % (0.0-1.8) 05/14/18 05:09 Lymph # 1.1 K/mm3 (1.2-5.4) L 05/14/18 05:09 [place] # 0.3 K/mm3 (0.0-0.8) 05/14/18 05:09 Eos # 0.1 K/mm3 (0.0-0.4) 05/14/18 05:09 Baso # 0.0 K/mm3 (0.0-0.1) 05/14/18 05:09 Seg Neutrophils % 38.7 % (40.0-70.0) L 05/14/18 05:09 Seg Neutrophils # 0.9 K/mm3 (1.8-7.7) L 05/14/18 05:09 Sodium 133 mmol/L (137-145) L 05/17/18 05:12 Potassium 4.0 mmol/L (3.6-5.0) 05/17/18 05:12 Chloride 98.1 mmol/L (98-107) 05/17/18 05:12 Carbon Dioxide 23 mmol/L (22-30) 05/17/18 05:12 Anion Gap 16 mmol/L 05/17/18 05:12 BUN 28 mg/dL (7-17) H 05/17/18 05:12 Creatinine 1.3 mg/dL (0.7-1.2) H 05/17/18 05:12 Estimated GFR 50 ml/min 05/17/18 05:12 BUN/Creatinine Ratio 22 % 05/17/18 05:12 Glucose 97 mg/dL (65-100) 05/17/18 05:12 POC Glucose 90 (70-105) 05/17/18 07:40 Hemoglobin A1c 5.7 % (4-6) 05/13/18 17:37 Calcium 9.1 mg/dL (8.4-10.2) 05/17/18 05:12 Total Bilirubin 0.20 mg/dL (0.1-1.2) 05/13/18 17:37 AST 36 units/L (5-40) 05/13/18 17:37 ALT 28 units/L (7-56) 05/13/18 17:37 Alkaline Phosphatase 75 units/L (35-129) 05/13/18 17:37 Total Protein 7.4 g/dL (6.3-8.2) 05/13/18 17:37 Albumin 3.8 g/dL (3.9-5) L 05/13/18 17:37 Albumin/Globulin Ratio 1.1 % 05/13/18 17:37 TSH 2.620 mlU/mL (0.270-4.200) 05/14/18 13:08 Free T4 1.39 ng/dL (0.76-1.46) 05/14/18 13:08
--- NOTE | 2018-05-17 15:49 | Progress Note ---
Subjective Date of service: 05/17/18 Principal diagnosis: acc hypertension Interval history: Patient is feeling better. c/o mild dyspnea. His main complaint now severe left flank pain. Pain is constant and made worse by movements.ALSO C/O TENDERNESS. No history of trauma. Objective Vital Signs Temp Pulse Resp BP Pulse Ox 05/17/18 13:49 98.7 F 93 H 20 166/62 95 05/17/18 10:23 91 H 200/82 05/17/18 10:18 91 H 200/82 05/17/18 10:13 91 H 20 200/82 98 05/17/18 08:51 64 20 171/82 97 05/17/18 04:14 97.9 F 64 18 163/68 98 05/16/18 21:18 98.1 F 59 L 18 161/70 98 05/16/18 17:04 99.6 F 71 18 157/70 95 - Physical Examination General: Appears Well HEENT: Positive: PERRL, Normocephaly, Mucus Membranes Moist Neck: Positive: neck supple, trachea midline, Carotid Upstroke (good) Neuro: Positive: Grossly Intact Abdomen: Positive: Soft, Active Bowel Sounds. Negative: Tender Skin: Negative: Rash, Wound Musculoskeletal: No Pain Extremities: Absent: edema - Labs and Meds Comprehensive Metabolic Panel 05/17/18 Range/Units 05:12 Sodium 133 L (137-145) mmol/L Potassium 4.0 (3.6-5.0) mmol/L Chloride 98.1 (98-107) mmol/L Carbon Dioxide 23 (22-30) mmol/L BUN 28 H (7-17) mg/dL Creatinine 1.3 H (0.7-1.2) mg/dL Glucose 97 (65-100) mg/dL Calcium 9.1 (8.4-10.2) mg/dL - Imaging and Cardiology EKG: pending, report reviewed Echo: pending
[2018-05-17 16:52] VITALS: BP 107/53
--- NOTE | 2018-05-17 16:54 | Progress Note ---
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 No dyspnea or chest pain, Objective Vital Signs Temp Pulse Resp BP Pulse Ox 05/17/18 16:47 99.0 F 87 16 107/53 97 05/17/18 13:49 98.7 F 93 H 20 166/62 95 05/17/18 10:23 91 H 200/82 05/17/18 10:18 91 H 200/82 05/17/18 10:13 91 H 20 200/82 98 05/17/18 08:51 64 20 171/82 97 05/17/18 04:14 97.9 F 64 18 163/68 98 05/16/18 21:18 98.1 F 59 L 18 161/70 98 05/16/18 17:04 99.6 F 71 18 157/70 95 - Physical Examination General: Appears Well HEENT: Positive: PERRL, Normocephaly, Mucus Membranes Moist Neck: Positive: neck supple, trachea midline, Carotid Upstroke (good) Cardiac: Positive: Regular Rhythm, S1/S2, Systolic Murmur (At Aortic area. 2/6. conducted to the carotids.) Neuro: Positive: Grossly Intact Abdomen: Positive: Soft, Active Bowel Sounds. Negative: Tender Skin: Negative: Rash, Wound Musculoskeletal: No Pain Extremities: Absent: edema - Labs and Meds Comprehensive Metabolic Panel 05/17/18 Range/Units 05:12 Sodium 133 L (137-145) mmol/L Potassium 4.0 (3.6-5.0) mmol/L Chloride 98.1 (98-107) mmol/L Carbon Dioxide 23 (22-30) mmol/L BUN 28 H (7-17) mg/dL Creatinine 1.3 H (0.7-1.2) mg/dL Glucose 97 (65-100) mg/dL Calcium 9.1 (8.4-10.2) mg/dL - Imaging and Cardiology EKG: pending, report reviewed Echo: pending, report reviewed - Telemetry EKG Rhythm: Sinus Rhythm
--- NOTE | 2018-05-17 17:04 | Discharge Summary ---
Providers - Providers Date of Admission: 05/13/18 13:53 Attending physician: ANN MCARTHUR MD 05/13/18 17:30 Consult to Physician [CONS] Routine Comment: Consulting Provider: GIOVANNI OROZCO Physician Instructions: Reason For Exam: HTN 05/14/18 10:28 Consult to Physician [CONS] Routine Comment: Consulting Provider: STEPHANY GOMEZ Physician Instructions: Reason For Exam: bradycardia Primary care physician: SHASHI SHETTY Hospitalization Reason for admission: hypertensive urgency Pertinent studies: Echocardiogram Hospital course: Admission h/P 67 y/o AAF with pmh of HTN ,RA and diet controlled Diabetes sent from Nephrolgy -Dr Orozco's office for control of BP.Apparently BP in high 190's systolic and Diastolic in 100 to 120 mm HG . No symptoms.Patient apparently compliant. Patient on clonidine once a day. Compliant with her medications.RA in remission. No H/A . Patient had extensive workup for hypertension a year ago at [facility] and everything was negative. Patient was admitted to the floor and was started on multiple antihypertensives, despite that her blood pressure was uncontrolled. Patient is complaining chest bradycardia due to clonidine and weaned off clonidine. Cardiology was consulted for bradycardia echo was done and was normal and cleared for discharge. Patient started on chlorthalidone and spironolactone which cause ELLEN and discontinued. Nephrology consult appreciated. Currently her blood pressure is controlled and discharged home. Appropriate medication scripts were given and clonidine, chlorthalidone and spironolactone discontinued. Patient didn't have any symptoms and hemodynamically stable at the time of discharge. Patient is obese and have counselled about weight loss. Disposition: - TO HOME OR SELFCARE Time spent for discharge: 32 minutes - Discharge Diagnoses (1) ELLEN (acute kidney injury) Status: Acute Comment: due to clorthalidone and spironolactone (2) Sinus bradycardia Status: Acute (3) CKD (chronic kidney disease) Status: Chronic (4) Rheumatoid arthritis Status: Chronic (5) T2DM (type 2 diabetes mellitus) Status: Chronic Qualifiers: Diabetes mellitus group home insulin use: without group home use (6) Hypertensive urgency, malignant Status: Acute Core Measure Documentation - Palliative Care Palliative Care/ Comfort Measures: Not Applicable - Core Measures Any of the following diagnoses?: none Exam - Physical Exam Narrative exam: Not in cardiopulmonary distress. The patient is obese. Vital signs as documented. Head exam is unremarkable. No scleral icterus . Neck is without jugular venous distension, thyromegaly, or carotid bruits. Lungs are clear to auscultation. Cardiac exam reveals regular rate and Rhythm. Abdominal exam reveals normal bowel sounds. Extremities are nonedematous and both femoral and pedal pulses are normal. 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 No focal weakness. - Constitutional Vitals: Temp Pulse Resp BP Pulse Ox 99.0 F 87 16 107/53 97 05/17/18 16:47 05/17/18 16:47 05/17/18 16:47 05/17/18 16:47 05/17/18 16:47 Plan Activity: no restrictions Weight Bearing Status: Full Weight Bearing Diet: low salt, diabetic Follow up with: SHASHI SHETTY MD, PHD [Primary Care Provider] - 7 Days Prescriptions: hydrALAZINE [Apresoline TAB] 100 mg PO TID #90 tab Minoxidil [Loniten] 5 mg PO BID #60 tablet Nifedipine ER 90 mg PO BID #30
== END 2018-05-17 19:13 | disposition home or self-care (01) | DRG 305 ==
LOC: 3A 12:09 → UNDOADMIN 12:09 → 3A 13:53
PROVIDERS: ADMIT Internal Medicine; ATTEND Internal Medicine
DX: I16.1 Hypertensive emergency (principal); N17.9 Acute kidney failure, unspecified; R00.1 Bradycardia, unspecified; M06.9 Rheumatoid arthritis, unspecified; N18.9 Chronic kidney disease, unspecified; N14.2 Nephropathy induced by unspecified drug, medicament or biological substance; T50.0X5A Adverse effect of mineralocorticoids and their antagonists, initial encounter; I12.9 Hypertensive chronic kidney disease with stage 1 through stage 4 chronic kidney disease, or unspecified chronic kidney disease; E11.22 Type 2 diabetes mellitus with diabetic chronic kidney disease; Y92.89 Other specified places as the place of occurrence of the external cause; Z71.3 Dietary counseling and surveillance; Z82.49 Family history of ischemic heart disease and other diseases of the circulatory system; Z79.899 Other long term (current) drug therapy
CPT/HCPCS: 36415; 80048; 80053; 82962; 83036; 84439; 84443; 85025; 93005; 93010; 93306; G0378; J0360; J1650; J1940; J7030; J7040

== ENCOUNTER 2019-01-11 16:43 | Emergency (ER) | payer MEDICARE ==
--- NOTE | 2019-01-11 17:55 | Event Note ---
ED Screening Note ED Screening Note: This initial assessment/diagnostic orders/clinical plan/treatment(s) is/are subject to change based on patients health status, clinical progression and re- assessment by fellow clinical providers in the ED. Further treatment and workup at subsequent clinical providers discretion. Patient/guardian urged not to elope from the ED as their condition may be serious if not clinically assessed and managed. Initial orders include: 68yo BF states that she received a called from her kidney doctor that expressed concern for her urine protein levels and her high blood pressure. He instructed to see the ER to have her BP lowered. She states that she has not been taking her current prescribed regimen of medications.
[2019-01-11 19:00] LABS: Basophils % (Auto) 0.7 % (0.0-1.8); Eosinophils # (Auto) 0.1 K/mm3 (0.0-0.4); Eosinophils % (Auto) 1.8 % (0.0-4.3); Hematocrit 39.5 % (30.3-42.9); Hemoglobin 13.5 gm/dl (10.1-14.3); Lymphocytes # (Auto) 1.6 K/mm3 (1.2-5.4); Mean Corpuscular HGB Conc 34 % (30-34); Mean Corpuscular Volume 95 fl (79-97); Monocytes # (Auto) 0.5 K/mm3 (0.0-0.8); Monocytes % (Auto) 11.7 % (0.0-7.3); Platelet Count 256 K/mm3 (140-440); Red Blood Count 4.18 M/mm3 (3.65-5.03); Red Cell Distribution Width 13.4 % (13.2-15.2)
[2019-01-11 19:13] LABS: Alanine Aminotransferase 443 units/L (7-56); Albumin 4.3 g/dL (3.9-5); BUN/Creatinine Ratio 29; Blood Urea Nitrogen 29 mg/dL (7-17); Calcium 9.3 mg/dL (8.4-10.2); Hemolysis Index 19
[2019-01-11 19:13] LABS: Bacteria,Urine 1+ /HPF (Negative); Bilirubin,Urine NEG (Negative); Blood,Urine NEG (Negative); Color,Urine Yellow (Yellow); Urobilinogen,Urine < 2.0 mg/dL (<2.0)
[2019-01-11] MEDS ORDERED: NACL 0.9% 1000 ML 1,000 ML IV ONE (19:34)
[2019-01-11] MEDS ORDERED: APRESOLINE IV ONE (19:43)
[2019-01-11] MEDS ORDERED: APRESOLINE ONE (19:45)
--- NOTE | 2019-01-11 19:53 | Emergency Department Report ---
<SADIE ISBELL - Last Filed: 01/11/19 23:31> ED General Adult HPI - General Chief complaint: High BP Stated complaint: HBP Time Seen by Provider: 01/11/19 18:09 - Related Data Home Medications Medication Instructions Recorded Confirmed Last Taken Hydroxychloroquine 200 mg PO QDAY 05/13/18 05/13/18 Unknown Losartan Potassium 100 mg PO QDAY 05/13/18 05/13/18 Unknown Terazosin HCl 1 mg PO QDAY 05/13/18 05/13/18 Unknown sulfaSALAzine 500 mg PO BID 05/13/18 05/13/18 Unknown Previous Rx's Medication Instructions Recorded Last Taken Type Minoxidil [Loniten] 5 mg PO BID #60 tablet 05/17/18 Unknown Rx Nifedipine ER 90 mg PO BID #30 05/17/18 Unknown Rx NIFEdipine [Nifedipine ER] 90 mg PO QDAY #30 tablet.er 01/11/19 Unknown Rx hydrALAZINE [Apresoline TAB] 100 mg PO TID #90 tab 01/11/19 Unknown Rx Allergies Allergy/AdvReac Type Severity Reaction Status Date / Time clonidine Allergy Unknown Verified 01/11/19 16:46 ED Past Medical Hx - Medications Home Medications: Home Medications Medication Instructions Recorded Confirmed Last Taken Type Hydroxychloroquine 200 mg PO QDAY 05/13/18 05/13/18 Unknown History Losartan Potassium 100 mg PO QDAY 05/13/18 05/13/18 Unknown History Terazosin HCl 1 mg PO QDAY 05/13/18 05/13/18 Unknown History sulfaSALAzine 500 mg PO BID 05/13/18 05/13/18 Unknown History Minoxidil [Loniten] 5 mg PO BID #60 tablet 05/17/18 Unknown Rx Nifedipine ER 90 mg PO BID #30 05/17/18 Unknown Rx NIFEdipine [Nifedipine ER] 90 mg PO QDAY #30 tablet.er 01/11/19 Unknown Rx hydrALAZINE [Apresoline TAB] 100 mg PO TID #90 tab 01/11/19 Unknown Rx ED Course - Consultations Consultation #1: 01/11/19 23:[address] Barriag informed that pressure has improved. Recommends to restart hydralazine 100 mg 3 times a day and nifedipine ER 90 mg once a day and follow-up for further management ED Medical Decision Making - Lab Data Result diagrams: 01/11/19 18:43 01/11/19 18:43 ED Disposition Clinical Impression: HTN (hypertension) with goal to be determined Disposition: DC-01 TO HOME OR SELFCARE Condition: Stable Instructions: Hypertension (ED) Additional Instructions: Please be compliant with blood pressure medication. Please contact her spring coiler in the morning to make an appointment for follow-up in the next 2-3 days. Prescriptions: hydrALAZINE [Apresoline TAB] 100 mg PO TID #90 tab NIFEdipine [Nifedipine ER] 90 mg PO QDAY #30 tablet.er Referrals: JOANIE WEISS MD [Primary Care Provider] - 3-5 Days GIOVANNI OROZCO MD [Staff Physician] - 3-5 Days <MALOU WADE - Last Filed: 01/11/19 23:53> ED General Adult HPI - General Source: patient Mode of arrival: Ambulatory Limitations: No Limitations - History of Present Illness Initial comments: 68-year-old -[place] female presents to the emergency room complaining of hypertension. Patient states that she was sent to the ER by her primary spring coiler Dr. Orozco for IV medication. Patient states her blood pressure was 197/100 prior to arrival. Patient does admit to having hypertension and noncompliance with also continue in her urine. Patient reports she is only been taking her nifedipine ER 90 mg twice a day. Patient reports she is supposed to be on hydralazine Lasix. Patient reports she stopped taking her medications after having her cholecystectomy she felt that she was getting dehydrated. Patient currently denies any headache chest pain shortness of breathing or lower leg edema. Patient's blood pressure upon arrival was 215/94 heart rate of 56. -: This afternoon Severity scale (0 -10): 0 ED Review of Systems ROS: Stated complaint: HBP Other details as noted in HPI Comment: All other systems reviewed and negative ED Past Medical Hx - Past Medical History Previous Medical History?: Yes Hx Hypertension: Yes Hx Diabetes: Yes - Surgical History Hx Cholecystectomy: Yes - Social History Smoking Status: Never Smoker Substance Use Type: None ED Physical Exam - General Limitations: No Limitations General appearance: alert, in no apparent distress - Head Head exam: Present: atraumatic, normocephalic - Eye Eye exam: Present: normal appearance - ENT ENT exam: Present: mucous membranes moist - Neck Neck exam: Present: normal inspection, full ROM - Respiratory Respiratory exam: Present: normal lung sounds bilaterally. Absent: respiratory distress - Cardiovascular Cardiovascular Exam: Present: regular rate, normal rhythm. Absent: systolic murmur, diastolic murmur, rubs, gallop - GI/Abdominal GI/Abdominal exam: Present: soft, normal bowel sounds - Extremities Exam Extremities exam: Present: normal inspection. Absent: pedal edema - Back Exam Back exam: Present: normal inspection - Neurological Exam Neurological exam: Present: alert, oriented X3 - Psychiatric Psychiatric exam: Present: normal affect, normal mood - Skin Skin exam: Present: warm, dry, intact, normal color. Absent: rash ED Course Vital Signs 01/11/19 01/11/19 01/11/19 17:49 18:33 18:38 Temperature 98.2 F Pulse Rate 56 L 58 L Respiratory 18 18 18 Rate Blood Pressure Blood Pressure 215/94 204/98 [Right] O2 Sat by Pulse 99 100 100 Oximetry 01/11/19 01/11/19 01/11/19 19:12 19:16 19:58 Temperature Pulse Rate 51 L 50 L 51 L Respiratory 14 15 Rate Blood Pressure 210/91 210/91 Blood Pressure 210/91 [Right] O2 Sat by Pulse Oximetry 01/11/19 01/11/19 01/11/19 20:16 20:30 20:33 Temperature Pulse Rate 58 L 68 65 Respiratory 10 L 20 14 Rate Blood Pressure 204/87 190/76 Blood Pressure 190/76 [Right] O2 Sat by Pulse Oximetry 01/11/19 01/11/19 01/11/19 20:58 22:12 22:52 Temperature Pulse Rate 64 64 67 Respiratory 16 16 14 Rate Blood Pressure Blood Pressure 191/73 198/79 192/83 [Right] O2 Sat by Pulse Oximetry 01/11/19 23:16 Temperature Pulse Rate 59 L Respiratory 19 Rate Blood Pressure 176/83 Blood Pressure [Right] O2 Sat by Pulse Oximetry ED Medical Decision Making - Lab Data Result diagrams: 01/11/19 18:43 01/11/19 18:43 - Medical Decision Making 68-year-old -[place] female presents to the emergency room complaining of hypertension. Patient states that she was sent to the ER by her primary spring coiler Dr. Orozco for IV medication. Patient states her blood pressure was 197/100 prior to arrival. Patient does admit to having hypertension and noncompliance with also continue in her urine. Patient reports she is only been taking her nifedipine ER 90 mg twice a day. Patient reports she is supposed to be on hydralazine Lasix. Patient reports she stopped taking her medications after having her cholecystectomy she felt that she was getting dehydrated. Patient currently denies any headache chest pain shortness of breathing or lower leg edema. Patient's blood pressure upon arrival was 215/94 heart rate of 56. Spoke with Dr. Isbell regarding patient's elevated LFTs and we decided to do a hepatitis panel. Call Dr. Yap spoke with Dr. Barriga who is explosion welder and he instructed to give Hydralazine 20 mg now. Critical care attestation.: If time is entered above; I have spent that time in minutes in the direct care of this critically ill patient, excluding procedure time. ED Disposition Is pt being admited?: No Does the pt Need Aspirin: No
[2019-01-11 20:52] LABS: Hepatitis B Surface Antigen Non-Reactive (Negative); Hepatitis C Virus Antibody Non-Reactive (NonReactive)
[2019-01-11 23:31] VITALS: BP 176/83
== END 2019-01-12 00:07 | disposition home or self-care (01) ==
LOC: ED 16:43
DX: I10 Essential (primary) hypertension (principal); E86.0 Dehydration; E11.9 Type 2 diabetes mellitus without complications; Z79.899 Other long term (current) drug therapy; Z90.49 Acquired absence of other specified parts of digestive tract; Z88.8 Allergy status to other drugs, medicaments and biological substances
CPT/HCPCS: 36415; 80053; 80074; 81001; 85025; 96361; 96374; 99283; J0360; J7030